=== PATIENT | female | born 1995 | race Caucasian/White ===

== ENCOUNTER 2017-09-03 10:53 | Emergency (ER) | payer OTHER ==
[~2017-09-03] VITALS: Ht 177.8 cm; Wt 77.3 kg
[2017-09-03] MEDS ORDERED: CRUTCHES MC (11:57)
[2017-09-03 12:16] VITALS: BP 118/71; PULSE 64; TEMP 98.4
== END 2017-09-03 12:16 | disposition home or self-care (01) ==
LOC: COL.ER 10:53
DX: S93.401A Sprain of unspecified ligament of right ankle, initial encounter (principal); Z98.890 Other specified postprocedural states; X50.0XXA Overexertion from strenuous movement or load, initial encounter; Y92.410 Unspecified street and highway as the place of occurrence of the external cause